=== PATIENT | female | born 1975 | race Caucasian/White ===

== ENCOUNTER 2019-04-27 07:00 | Outpatient (REF) | payer OTHER, SELFPAY ==
--- NOTE | 2019-04-27 11:50 | PAPFT_PTH ---
PATIENT: Gustavo Montaño LOC: [facility] U#:[id number] AGE/SX: 43/F ROOM: RE04/27/[address]: Melodie Rashid : 1975 BED: DIS: 04/27/2019 SPEC #: [id number] RECD: 04/28/19 13:11 STATUS: JOLYNN REQ #: [id number] ALFONSO: 04/27/19 11:[address]: Melodie Rashid DEPT: [facility] Cytology RECD BY: Jumnaa John ENTERED: 04/28/19 13:12 SP TYPE: PAPFT OTHR DR: Brenda Weiner Tissues: 1 - CX/ENDOCX FOR PAP SMEARS Procedures: PAP THIN PREP/[facility] Screening Comments: [id number]
== END 2019-04-27 07:20 ==
LOC: LBN 07:00
PROVIDERS: PCP Nurse Practitioner; Visit Provider Naturopath
DX: Z12.4 Encounter for screening for malignant neoplasm of cervix (principal)
CPT/HCPCS: 88142

== ENCOUNTER 2021-03-09 02:10 | Outpatient (CLI) | payer MEDICAID, SELFPAY ==
[2021-03-09 08:44] LABS: Abs Immature Grans 0.02 10^3/uL (0.0-0.06); Absolute Basophil Count 0.04 10^3/uL (0.0-0.2); Absolute Eosinophil Count 0.24 10^3/uL (0.0-0.7); Absolute Monocyte Count 0.58 10^3/uL (0.1-0.8); Absolute Neutrophil Count 3.47 10^3/uL (1.2-6.7); Basophils % 0.6; Eosinophils % 3.7; HCT 40.2 % (36.0-46.0); HGB 12.8 g/dL (11.2-15.7); Immature Grans % 0.3; Lymphocytes % 33.6; MCH 30.6 pg (27.0-33.0); MCHC 31.8 % (32.0-36.0); MCV 96.2 fL (80-95); MPV 9.7 fL (8.0-11.0); Monocytes % 8.9; Neutrophils % 52.9; Nucleated RBC 0 %; Platelet Count 305 10^3/uL (130-400); RBC 4.18 10^6/uL (3.93-5.22); RDW 13.3 % (11.7-14.6); RDW-SD 47.4 fL; WBC 6.55 10^3/uL (4.4-10.8)
[2021-03-09 09:39] LABS: Iron 60 ug/dL (50-170); Total Iron Binding Capacity 332 ug/dL (250-450); Transferrin Sat 18 % (15-50)
[2021-03-09 10:01] LABS: ALT 21 U/L (14-59); AST 5 U/L (15-37); Albumin 3.7 g/dL (3.4-5.0); Alkaline Phosphatase 55 U/L (46-116); Anion Gap 3.8 mmol/L (3-11); BUN 10 mg/dL (7-18); Bilirubin, Total 0.4 mg/dL (0.2-1.0); CO2 32.2 mmol/L (21.0-32.0); CREATININE 0.6 mg/dL (0.55-1.02); Calcium 8.8 mg/dL (8.5-10.1); Chloride 108 mmol/L (98-107); Ferritin 19 ng/mL (8-252); Folate 18.2 ng/mL (8.6-20.0); Glucose 100 mg/dL (74-106); Potassium 4.6 mmol/L (3.5-5.1); Sodium 144 mmol/L (136-145); TSH 1.16 uIU/mL (0.36-3.74); Total Protein 6.4 g/dL (6.4-8.2); Vitamin B12 497 pg/mL (193-986)
[2021-03-09 10:23] LABS: FREE T4 0.96 ng/dL (0.76-1.46)
[2021-03-09 16:35] LABS: CRP, High Sensitivity 1.52 mg/L (See Note)
[2021-03-09 16:53] LABS: T3,Free 3.3 pg/mL (2.8-5.3)
[2021-03-12 05:14] LABS: Vitamin D 25 Total 29.5 ng/mL (30-100)
[2021-03-12 10:13] LABS: Homocysteine 8.9 umol/L (5.0-13.9)
[2021-03-14 08:47] LABS: 25-Hydroxy D Total 30 ng/mL; 25-Hydroxy D2 7.2 ng/mL; 25-Hydroxy D3 23 ng/mL
== END 2021-03-09 02:11 | disposition home or self-care (01) ==
LOC: LBO 02:12
PROVIDERS: PCP Nurse Practitioner; Visit Provider Naturopath
DX: R79.89 Other specified abnormal findings of blood chemistry (principal); E55.9 Vitamin D deficiency, unspecified; F41.9 Anxiety disorder, unspecified; R77.8 Other specified abnormalities of plasma proteins; R00.2 Palpitations
CPT/HCPCS: 36415; 80053; 82306; 83090; 86141; 82607; 82728; 82746; 83540; 83550; 84439; 84443; 84481; 85025

== ENCOUNTER 2022-11-25 02:06 | Outpatient (CLI) | payer MEDICAID, SELFPAY ==
--- NOTE | 2022-11-25 09:47 | DI.RAD_ITS ---
Exam(s) XR SHUNT SERIES EXAM: XR SHUNT SERIES CLINICAL HISTORY: scalp pain, s/p hitting head, check placement [employer] shunt,r51.9,g93.2,z98.2. TECHNIQUE: 2D digital imaging was performed. Seven images were obtained. COMPARISON: No exams were available for comparison Findings: SKULL: Unremarkable. No destructive osseous lesion seen. LUNGS: Clear. No pleural abnormality seen. HEART: Normal. MEDIASTINUM: Normal. BOWEL GAS PATTERN: Nondistended bowel loops. No air-fluid levels seen. ABNORMAL COLLECTIONS OF AIR: No abnormal collection of air. No pneumoperitoneum. CALCIFICATIONS: None. No radiopaque renal, ureteral, or bladder calcification. SHUNT CATHETER: Visualized portions of shunt catheter from the level of the skull to the level of the abdomen is continuous without evidence of kink or break. OTHER FINDINGS: None. IMPRESSION: 1. Unremarkable shunt series. 2. No acute process. DATA REPOSITORY: RADIATION DOSE DELIVERED:
== END 2022-11-25 02:26 ==
PROVIDERS: PCP Nurse Practitioner Family; Visit Provider Nurse Practitioner Family
DX: G89.11 Acute pain due to trauma (principal); R51.9 Headache, unspecified; G93.2 Benign intracranial hypertension; Z98.2 Presence of cerebrospinal fluid drainage device; W22.8XXA Striking against or struck by other objects, initial encounter
CPT/HCPCS: 70360; 71045; 72050; 74018

== ENCOUNTER → 2023-10-06 02:05 | Outpatient (CLI) | payer MEDICAID, SELFPAY ==
--- NOTE | 2023-10-06 09:20 | DI.CT_ITS ---
Exam(s) CT HEAD WO EXAM: CT HEAD WO CLINICAL HISTORY: ?shunt malfunction,migraine headache,pseduotumor cerebri.s/p shunt,g43.009. 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 The tip of the shunt is seen in the midline. Ventricles and Extra axial spaces: Normal in size and morphology for the patient's age. Hemorrhage: None. Cerebral parenchyma: Normal. Note is made of an empty sella. Midline shift: None. Brainstem/Cerebellum: Normal. Calvarium: Normal. Visualized Paranasal sinuses/Mastoids: There is mucosal thickening in the visualized paranasal sinuse s. No fluid levels are seen. The frontal sinuses are hypoplastic. Soft Tissues: Unremarkable. IMPRESSION: 1. No acute intracranial process. 2. The ventricular size is within normal limits. RADIATION DOSE DELIVERED: Total DLP DATA REPOSITORY: All CT scans at this facility are submitted to the National Radiology Data Registry (NRDR) Dose Index Registry (DIR) with the [employer] (A[employer]). RADIATION OPTIMIZATION: All CT scans at this facility use at least one of these dose optimization te chniques: automated exposure control; mA and/or kV adjustment per patient size (includes targeted exa ms where dose is matched to clinical indication); or iterative reconstruction.
== END ==
PROVIDERS: PCP Nurse Practitioner Family; Visit Provider Psychiatry & Neurology Neurology
DX: G43.009 Migraine without aura, not intractable, without status migrainosus (principal); G93.2 Benign intracranial hypertension; Z98.2 Presence of cerebrospinal fluid drainage device
CPT/HCPCS: 70450

== ENCOUNTER 2024-10-18 11:56 | Outpatient (REF) | payer MEDICAID, SELFPAY ==
--- NOTE | 2024-10-18 10:00 | PAPFT_PTH ---
PATIENT: Gustavo Montaño LOC: [facility] U#:[id number] AGE/SX: 48/F ROOM: RE10/18/[address]: Annamarie Palacio : 1975 BED: DIS: 10/18/2024 SPEC #: [id number] RECD: 10/19/24 13:18 STATUS: JOLYNN REQ #: [id number] ALFONSO: 10/18/24 10:[address]: Annamarie Palacio DEPT: [facility] Cytology RECD BY: Jumana John ENTERED: 10/19/24 13:19 SP TYPE: PAPFT OTHR DR: Paula Chowdhury APRN Tissues: 1 - CX/ENDOCX FOR PAP SMEARS Procedures: PAP THIN PREP/[facility] Screening HPV DNA PROBE Comments: [id number] (HPV 16 & 18/45) (CHLAMYDIA/GC)
[2024-10-20 11:49] LABS: Chlamydia Result Negative (Negative); GC Result Negative (Negative)
== END 2024-10-18 11:57 | disposition home or self-care (01) ==
LOC: LBN 11:56
PROVIDERS: PCP Nurse Practitioner Family; Visit Provider Naturopath
DX: N76.0 Acute vaginitis (principal); Z12.4 Encounter for screening for malignant neoplasm of cervix; Z01.419 Encounter for gynecological examination (general) (routine) without abnormal findings
CPT/HCPCS: 87491; 87591; 88142; 87480; 87510; 87624; 87660